=== PATIENT | female | born 1935 | race Caucasian/White ===

== ENCOUNTER 2018-06-15 10:11 | Emergency (ER) | payer OTHER ==
[~2018-06-15] VITALS: Ht 157.5 cm; Wt 40.7 kg
[~2018-06-15 10:11] MED LIST: ATENOLOL
[2018-06-15 10:13] VITALS: BP 180/89; PULSE 78; RESP 18; Ht 157.5 cm; Wt 40.7 kg
[2018-06-15] MEDS ORDERED: NAPR-985 PO (13:27)
[2018-06-15] MEDS ORDERED: IBUP-1542 PO (13:27)
--- NOTE | 2018-06-15 14:18 | ERD ---
ER Documentation Chief Complaint Chief Complaint right foot/ankle pain x 2 days post fall at home HPI 83 yr old female complaining of pain to right foot x 2 days. Patient tripped and fell two days ago. Pain with ambulation. No numbness or tingling. Has not taken medications for pain. No other medical problems. NKDA. Surgical history denies. Social history denies ROS All systems reviewed and are negative except as per history of present illness. Medications Home Meds Active Scripts Naproxen* (Naprosyn*) 500 Mg Tablet, 500 MG PO BID PRN for PAIN AND/OR INFLAMMATION, #30 TAB Prov:CAMMIE GENTILE PA-C 06/15/18 Ibuprofen* (Motrin*) 600 Mg Tab, 600 MG PO Q6, #30 TAB Prov:CAMMIE GENTILE PA-C 06/15/18 Reported Medications [Atenolol] No Conflict Check 05/24/09 Allergies Allergies: Coded Allergies: No Known Drug Allergies (Verified Allergy, Unknown, 06/15/18) PMhx/Soc Hx Neurological Disorder: No Hx Respiratory Disorders: Yes (COUGH X 5 DAYS) Hx Cardiac Disorders: Yes (HYPERTENSION) Hx Miscellaneous Medical Probl: No Hx Alcohol Use: No Hx Substance Use: No Hx Tobacco Use: No Smoking Status: Never smoker FmHx Family History: No diabetes, No coronary disease, No other Physical Exam Vitals Vital Signs Date Temp Pulse Resp B/P (MAP) Pulse Ox O2 O2 Flow FiO2 Time Delivery Rate 06/15/18 99.5 78 18 180/89 99 10:13 (119) Physical Exam GENERAL: The patient is well-appearing, well-nourished, in no acute distress CHEST: Clear to auscultation bilaterally. There are no rales, wheezes or rhonchi. HEART: Regular rate and rhythm. No murmurs, clicks, rubs or gallops. EXTREMITIES: TTP over right base of 5th MT. Mild swelling. Normal flexion and extension. NEUROLOGIC: Alert and oriented. Cranial nerves II through XII intact. Motor strength in all 4 extremities with 5 out of 5 strength. Sensation grossly intact. Normal speech and gait. SKIN: There is no apparent rash or petechiae. The skin is warm and dry. Procedures/MDM DIAGNOSTIC IMAGING REPORT Patient: CARLOS A SOTO : 1935 Age: 83 Sex: F MR #: [id number] DOS: 06/15/18 1201 Ordering MD: FITO GENTILE PA-C Location: [facility] Room/Bed: PROCEDURE: XR Ankle. CLINICAL INDICATION: ankle pain with fall TECHNIQUE: AP and lateral views of the left ankle were performed. COMPARISON: None. FINDINGS: There is normal alignment. There is mild bony demineralization.. No fracture or osseous lesion is identified. The joints are normal. There is diffuse soft tissue swelling. IMPRESSION: No visualized fracture or dislocation. Bony demineralization. Ankle soft tissue swelling. DIAGNOSTIC IMAGING REPORT Patient: CARLOS A SOTO : 1935 Age: 83 Sex: F MR #: [id number] DOS: 06/15/18 1201 Ordering MD: FITO GENTILE PA-C Location: [facility] Room/Bed: PROCEDURE: XR Foot. CLINICAL INDICATION: foot pain TECHNIQUE: AP, lateral and oblique views of the right foot was obtained. The images were reviewed on a PACS workstation. COMPARISON: None. FINDINGS: There is diffuse bony demineralization. There is a prominent hallux valgus, with first metatarsal phalangeal joint degenerative narrowing. There is a second digit hammertoe configuration. There is no visualized acute fracture. There is ankle and hind foot soft tissue swelling. No significant soft tissue swelling is seen. IMPRESSION: 1. Bony demineralization. 2. Hallux valgus and second digit hammertoe. 3. No acute fracture or dislocation seen. 4. Ankle and hind foot soft tissue swelling. ER Course: Nicho wrap given ED. Patient is neuro intact pre-and post Nicho wrap application. DM: 83-year-old female presenting with pain to right foot. I have low suspicion for acute fracture dislocation. Patient has a contusion and is treated with supportive medications and splinting. Patient is told symptoms change or worsen to return immediately to the ER. All questions answered at discharge Departure Diagnosis: Primary Impression: Ankle sprain Condition: Stable Patient Instructions: Treating Ankle Sprains Referrals: [facility] YOU HAVE RECEIVED A MEDICAL SCREENING EXAM AND THE RESULTS INDICATE THAT YOU DO NOT HAVE A CONDITION THAT REQUIRES URGENT TREATMENT IN THE EMERGENCY DEPARTMENT. FURTHER EVALUATION AND TREATMENT OF YOUR CONDITION CAN WAIT UNTIL YOU ARE SEEN IN YOUR DOCTORS OFFICE WITHIN THE NEXT 1-2 DAYS. IT IS YOUR RESPONSIBILITY TO MAKE AN APPOINTMENT FOR FOLOW-UP CARE. IF YOU HAVE A PRIMARY DOCTOR --you should call your primary doctor and schedule an appointment IF YOU DO NOT HAVE A PRIMARY DOCTOR YOU CAN CALL OUR PHYSICIAN REFERRAL HOTLINE AT IF YOU CAN NOT AFFORD TO SEE A PHYSICIAN YOU CAN CHOSE FROM THE FOLLOWING [facility] [address] [facility] [address] [employer] [address] [facility] [address] [facility] [address] [facility] [address] [facility] [facility]. [address] Additional Instructions: FOLLOW UP WITH YOUR PRIMARY CARE PHYSICIAN TOMORROW.Return to this facility if you are not improving as expected. CAMMIE GENTILE PA-C Jun 15, 2018 14:18
== END 2018-06-15 14:04 | disposition home or self-care (01) ==
LOC: FTE 10:11
DX: S93.401A Sprain of unspecified ligament of right ankle, initial encounter (principal); I10 Essential (primary) hypertension; W01.0XXA Fall on same level from slipping, tripping and stumbling without subsequent striking against object, initial encounter; Y92.009 Unspecified place in unspecified non-institutional (private) residence as the place of occurrence of the external cause
CPT/HCPCS: 73630